=== PATIENT | female | born 1995 | race Caucasian/White ===

== ENCOUNTER 2020-01-13 15:05 | Inpatient (IN) | payer BC ==
[~2020-01-13] VITALS: Ht 175.3 cm; Wt 78.2 kg
[2020-01-13] VITALS (22 sets, daily range): BP systolic 110–133; BP diastolic 8–87; PULSE 57–85; TEMP 97.7–98.4
--- NOTE | 2020-01-13 14:50 | NUR ---
Patient arrives ambulatory with FOB with complaints of contractions since 0600. Patient reports they are now three minutes apart. Patient denies ROM, vaginal bleeding, and reports normal movement. Patient changes into gown, EFM explained and placed. VS obtained. 1455- SVE by this RN . Patient repositioned WL and updated on plan of care. See physican notification. 1500- Patient standing at bedside breathing through contractions.
[2020-01-13] MEDS ORDERED: PRENATAL VITAMI1 TA3 PO (15:15)
[2020-01-13] MEDS ORDERED: BENADRYL25 M2 PO (15:16)
[2020-01-13 17:02] LABS: BASO # 0.1 (0.0-0.2); BASO % 0.3 % (0.0-2.0); EOS % 0.1 % (0-4.0); GRAN # 14.9 (1.4-6.5); GRAN % 76.7 % (42.2-75.2); HEMATOCRIT 44.1 % (37.0-47.0); HEMOGLOBIN 15.5 g/dl (12.5-16.0); LYMPH # 3.1 (1.2-3.4); LYMPH % 16.1 % (20.0-51.0); MEAN CELL VOLUME 87 fl (80.0-100.0); MEAN CORPUSCULAR HEMOGLOBIN 31 pg (27.0-31.0); MEAN CORPUSCULAR HGB CONC 35 g/dl (33.0-37.0); MEAN PLATELET VOLUME 9.5 fl (7.4-10.4); MONO # 1.2 (0.1-0.6); MONO % 6.2 % (1.7-9.3); PLATELET COUNT 218 K/mm3 (130-400); RED BLOOD COUNT 5.08 M/mm3 (4.10-5.30); REDCELL DISTRIBUTION WIDTH-CV 12.4 % (11.5-14.5)
--- NOTE | 2020-01-13 18:37 | NUR ---
1630 - Pt requesting epidural. Pacheco Magana CRNA notified. 165 - IV started in by Pacheco Magana CRNA. LR started per protocol, bolus given prior to epidural placement. 1708 - Pacheco Magana CRNA to pt bedside for epidural placement. Pt repositioned sitting on side of bed. Test dose given at 1722, pt repositioned following placement for comfort WL. 1755 - SVE 4/-1. Pt comfortable with epidural. Discussed swabbing pt for COVID, pt declines swab at this time. 1800 - Reza catheter placed.
--- NOTE | 2020-01-13 23:05 | NUR ---
2216 FHT'S VARIABLE TO THE 60'S FOR 50 SEC. PT TURN TO RIGHT SIDE. FHT'S RETURNED TO THE 120'S
[2020-01-14] VITALS (13 sets, daily range): BP systolic 96–134; BP diastolic 53–89; PULSE 70–104; TEMP 98.1–98.9
--- NOTE | 2020-01-14 01:22 | NUR ---
0027 DR LIANG HERE, PT POSITIONED IN FOOTPLATES AND PREPPED, PUSHING WELL. 0034 OF MALE INFANT, APGARS 8-9-9, 0036 SPONTAOUS DELIVERY OF PLACENTA, FF WITH MASSAGE AND PITOCIN DRIP INFUSING AT 333ML/HR
--- NOTE | 2020-01-14 03:48 | NUR ---
0300 PT UP TO BATHROOM, TOLERATED WELL. VOIDS 500 CC. REVIEWED [facility]. AMBULATES TO RM 214 TOLERATES WELL
[2020-01-14] MEDS ORDERED: MOTRIN 800800 MG/TAB PO (09:39)
[2020-01-15 00:44] VITALS: BP 99/54; PULSE 72; TEMP 97.4
[2020-01-15 04:35] VITALS: BP 94/56; PULSE 63; TEMP 97.6
[2020-01-15 07:30] VITALS: BP 92/54; PULSE 65; TEMP 97.8
== END 2020-01-15 13:10 | disposition home or self-care (01) | DRG 807 ==
LOC: LDRO 15:05 → OB 16:12 → LDR 16:12 → OB 01-14 03:00
PROVIDERS: ADMIT Obstetrics & Gynecology
PROC: 10E0XZZ Delivery of Products of Conception, External Approach (ICD-10-PCS; principal; 2020-01-13)
PROC: 10907ZC Drainage of Amniotic Fluid, Therapeutic from Products of Conception, Via Natural or Artificial Opening (ICD-10-PCS; 2020-01-13)
DX: O26.893 Other specified pregnancy related conditions, third trimester (principal); Z37.0 Single live birth; Z67.91 Unspecified blood type, Rh negative; O71.82 Other specified trauma to perineum and vulva; Z3A.40 40 weeks gestation of pregnancy
CPT/HCPCS: J2590; J2791; J7120

== ENCOUNTER 2022-07-31 21:27 | Inpatient (IN) | payer BC ==
[~2022-07-31] VITALS: Ht 175.3 cm; Wt 86.8 kg
[~2022-07-31 21:27] MED LIST: BENADRYL25 M2 PO; MOTRIN 800800 MG/TAB PO; PRENATAL VITAMI1 TA3 PO
--- NOTE | 2022-07-31 21:35 | NUR ---
Pt ambulated onto unit, accompanied by pt spouse. Pt oriented to LDR3 and changed into exam gown. Pt on external monitors x2 at 2140. VS obtained and POC discussed with pt and pt spouse.
[2022-07-31 22:00] VITALS: BP 123/79; PULSE 69; TEMP 97.5
[2022-07-31 22:30] VITALS: BP 110/73; PULSE 69
[2022-07-31 23:00] VITALS: BP 112/85; PULSE 72
--- NOTE | 2022-07-31 23:02 | NUR ---
2300: SVE, with pt consent and explanation, /-2. 2302: Pt off external monitors x2.
--- NOTE | 2022-07-31 23:28 | NUR ---
IV in LH, 18G placed and LR 1 hung.
[2022-07-31 23:30] VITALS: BP 121/86; PULSE 71
[2022-07-31 23:40] LABS: BASO # 0.1 K/mm3 (0.0-0.2); BASO % 0.4 % (0.0-2.0); EOS # 0.1 K/mm3 (0.0-0.7); EOS % 0.4 % (0.0-4.0); GRAN # 8.8 K/mm3 (1.4-6.5); GRAN % 68.1 % (42.2-75.2); HEMATOCRIT 44.7 % (37.0-47.0); HEMOGLOBIN 15.7 g/dl (12.5-16.0); LYMPH # 3.1 K/mm3 (1.2-3.4); LYMPH % 23.6 % (20.0-51.0); MEAN CELL VOLUME 87 fl (80.0-100.0); MEAN CORPUSCULAR HEMOGLOBIN 31 pg (27-31); MEAN CORPUSCULAR HGB CONC 35 g/dl (33.0-37.0); MEAN PLATELET VOLUME 9.2 fl (7.4-10.4); MONO # 0.9 K/mm3 (0.1-0.6); MONO % 7.1 % (1.7-9.3); PLATELET COUNT 221 K/mm3 (130-400); RED BLOOD COUNT 5.13 M/mm3 (4.10-5.30)
--- NOTE | 2022-07-31 23:40 | NUR ---
Pt did not tolerate epidural placement well. Pt would flinch or move after attempts made by Elysia Carr CRNA. Pt exclaimed "Ow, fuck that hurts." Pt raised their voice towards Elysia Carr CRNA "because that hurts." Elysia Carr CRNA and this nurse calmed pt before continuing with epidural placement. Pt apologized to Elysia Carr CRNA after epidural placement and being adequately dosed.
--- NOTE | 2022-07-31 23:40 | NUR ---
2330: Elysia Carr CRNA at pt bedside for epidrual placement. Risks and benefits explained. Pt sitting up at the edge of bed, in position for an epidural placement. Questions, concerns, and needs encouraged. 2340: SS by Elysia Carr CRNA. 2350: Pt in WL position.
[2022-08-01] VITALS (26 sets, daily range): BP systolic 11–143; BP diastolic 56–85; PULSE 56–88; TEMP 97.2–98.5
[2022-08-01] MEDS ORDERED: MAGNESIUM200 MG PO (00:15)
--- NOTE | 2022-08-01 03:50 | NUR ---
0350 DR SHAH IN ROOM AND SVE. AROM WITH CLEAR FLUID. COMPLETE AND READIED FOR DELIVERY. INSTRUCTED TO PUSH WITH CONTRACTIONS 0359 DELIVERY VIABLE MALE OVER INTACT PERINEUM WITH 9/9/9 APGARS. IV CONTS TO INFUSE.
[2022-08-01] MEDS ORDERED: MOTRIN 800800 MG/TAB PO (05:24)
--- NOTE | 2022-08-01 09:00 | NUR ---
0900 - PATIENT UP TO BATHROOM USING FABIAN STEADY. PATIENT VOIDS. PERICARE PERFORMED BY RN. CLEAN GOWN ON. CLEAN MESH UNDERWEAR AND ICEPACK PAD ON. 0910 - PATIENT AMBULATORY IN ROOM. PATIENT GAIT STEADY WITH RN HANDHOLD ASSIST. 0915 - PATIENT AMBULATORY TO ROOM 216 WITH HANDHOLD ASSIST FROM RN. PATIENT ORIENTED TO ROOM. PATIENT RESTING COMFORTABLY. CALL LIGHT IN REACH. CARE ONGOING.
[2022-08-02 08:13] VITALS: BP 115/70; PULSE 56; TEMP 98.5
--- NOTE | 2022-08-02 10:02 | NUR ---
Initial visit; Parents thanked [employer]ail[employer] Sheriff for coming in and visiting, offering congratulations and God's blessings for the of their son. [employer] Sheriff thanked family for choosing our hospital.
--- NOTE | 2022-08-02 12:15 | NUR ---
1215 - DISCHARGE INSTRUCTIONS REVIEWED WITH PATIENT AND SPOUSE. QUESTIONS ANSWERED.
== END 2022-08-02 12:40 | disposition home or self-care (01) | DRG 807 ==
LOC: LDRO 21:27 → LDR 21:40 → OB 08-01 17:09
PROVIDERS: ADMIT Obstetrics & Gynecology
PROC: 10E0XZZ Delivery of Products of Conception, External Approach (ICD-10-PCS; principal; 2022-08-01)
PROC: 10907ZC Drainage of Amniotic Fluid, Therapeutic from Products of Conception, Via Natural or Artificial Opening (ICD-10-PCS; 2022-08-01)
DX: O69.81X0 Labor and delivery complicated by cord around neck, without compression, not applicable or unspecified (principal); Z37.0 Single live birth; Z3A.39 39 weeks gestation of pregnancy; O43.113 Circumvallate placenta, third trimester
CPT/HCPCS: J2590; J2791; J7120